=== PATIENT | female | born 1955 | race Caucasian/White ===

== ENCOUNTER 2018-09-23 07:28 | Day surgery (SDC) | payer OTHER ==
--- OUTSIDE RECORDS SUMMARY | 2018-09-16 13:57 | XMSREPORT | Referral Summary ---
:1955 Author Organization [facility] Address [address] [place] [address] [address] [place] [address] Care Team Providers Name Role Phone Farooq Garcia MD Attributed Provider Reason for Referral Transitions of Care (Routine) Status Reason Specialty Diagnoses / Referred By Referred To Procedures Contact Contact New Request Patient Diagnoses Screening for colon cancer Farooq Garcia Chi Preference D, MD [place] [address] [address] Phone: [facility] [place] [phone] [place] [address] Fax: Reason for Visit Reason Comments Medical Question Encounter Details Date Type Department Care Team Description 09/14/2018 Telephone [facility] Farooq Garcia MD Medical Question Family Medicine [address] [place] [address] [place] [id number] Allergies No Known Allergiesdocumented as of this encounter (statuses as of 09/14/2018) Medications Medication Sig Dispensed Refills Start Date End Date Status vitamin C, ascorbic Take 500 mg by 0 Active acid, 500 MG tablet mouth 1 time per day Biotin 5000 MCG CAPS Take 5,000 mcg by 0 Active mouth 1 time per day Multiple Vitamin Take 1 tablet by 0 Active (MULTI VITAMIN PO) mouth 1 time per day vitamin D3, Take 1,000 Units by 0 Active cholecalciferol, 1000 mouth 1 time per units tablet day omega-3 fatty acids Take 1,200 mg by 0 Active (FISH OIL) 1200 mg mouth 1 time per capsule day calcium Take 2 tablets by 0 Active citrate-vitamin D mouth 1 time a day (CALCIUM CITRATE with breakfast MAXIMUM/VIT D) 315 mg-250 unit tablet predniSONE 20 mg 3 po Once Daily x 3 18 tablet 0 11/10/2017 Active tabletIndications: days,2 po Once Contact dermatitis Daily x 3 days, 1 due to poison janet po Once Daily x 3 days. ondansetron (ZOFRAN) 0 11/22/2017 Active 4 mg tablet sumatriptan (IMITREX) Take 1 tablet (100 20 tablet 1 05/07/2018 Active 100 mg mg) by mouth 1 time tabletIndications: for 1 dose May Seasonal allergic repeat in 2 hours rhinitis, unspecified for 1 dose. Limit trigger 200 mg per 24-hour period fluticasone (FLONASE) Elmo 1 spray into 1 Bottle 9 05/07/2018 Active 50 mcg/spray nasal each nostril 1 time sprayIndications: per day Seasonal allergic rhinitis, unspecified trigger tretinoin (RETIN-A) Apply to affected 135 g 3 05/07/2018 Active 0.025 % area creamIndications: Seasonal allergic rhinitis, unspecified trigger venlafaxine (EFFEXOR) Take 1 tablet (37.5 90 tablet 1 05/07/2018 Active 37.5 mg mg) by mouth 1 time tabletIndications: per day Depressive disorder due to separate medical condition cetirizine (ZYRTEC) Take 1 tablet (10 90 tablet 1 05/07/2018 Active 10 mg mg) by mouth 1 time tabletIndications: per day Seasonal allergic rhinitis, unspecified trigger documented as of this encounter (statuses as of 09/14/2018) Active Problems Problem Noted Date Contact dermatitis due to poison janet 11/10/2017 documented as of this encounter (statuses as of 09/14/2018) Immunizations Name Dates Previously Given Next Due Influenza Vaccine,unspecified 02/03/2018 Zoster Recombinant (Shingrix) 08/07/2018, 05/01/2018 documented as of this encounter Social History Tobacco Use Types Packs/Day Years Used Date Never Smoker Smokeless Tobacco: Never Used Sex Assigned at Date Recorded Not on file Job Start Date Occupation Industry Not on file Not on file Not on file Travel History Travel Start Travel End No recent travel history available. documented as of this encounter Plan of Treatment Name Priority Associated Diagnoses Order Schedule CLINIC REFERRAL ENDOSCOPY NON Routine Screening for colon cancer Ordered: ONE CHART documented as of this encounter Visit Diagnoses Diagnosis Screening for colon cancer - Primary Special screening for malignant neoplasms, colon documented in this encounter
[2018-09-23] MEDS ORDERED: Propofol 200 MG/20 ML SDV ONE (07:33)
[2018-09-23] MEDS ORDERED: Midazolam 1 MG/ML 2 ML SDV ONE (07:33)
[2018-09-23] MEDS ORDERED: fentaNYL 100 MCG/2 ML SDV ONE (07:33)
[2018-09-23] MEDS ORDERED: Lactated Ringers 1,000 ML IV SCH (08:00)
[2018-09-23] MEDS ORDERED: Ondansetron 4 MG/2 ML SDV ONE (09:24)
--- NOTE | 2018-09-24 08:45 | OR ---
DATE OF PROCEDURE: 09/23/2018 PREOPERATIVE DIAGNOSIS: Strong family history of colon cancer. Mother of colon cancer. POSTOPERATIVE DIAGNOSIS: Unremarkable colonoscopy. Strong family history of colon cancer. Mother of colon cancer. PROCEDURE: Colonoscopy to the cecum. SURGEON: Gomez Mckeon MD ANESTHESIA: IV anesthesia with monitored anesthesia care. INDICATION: This 63-year-old white female was referred for a colonoscopy because of a strong family history of colon cancer. Her mother of colon cancer at age 67. I counseled her for the procedure, including risks and alternatives, and she gave her informed consent to proceed. DESCRIPTION OF PROCEDURE: The patient was placed in the left lateral decubitus position. IV anesthesia was administered by the Anesthesia Service. Time-out was held. A rectal exam was performed, which was unremarkable. The flexible video Olympus colonoscope was introduced through her anus, up her rectum, and out her colon all the way to the cecum. Once the cecum was reached, the scope was slowly withdrawn examining the mucosa throughout. No mucosal abnormalities were noted. The scope was retroflexed in the rectum with the distal rectum appearing unremarkable. The scope was straightened and removed. She tolerated the procedure well. Gomez Mckeon MD /[id number]
== END 2018-09-23 11:24 | disposition home or self-care (01) ==
LOC: JP.SDS 07:28
PROVIDERS: ATTEND Surgery
DX: Z12.11 Encounter for screening for malignant neoplasm of colon (principal); K21.9 Gastro-esophageal reflux disease without esophagitis; K44.9 Diaphragmatic hernia without obstruction or gangrene; Z86.010 Personal history of colon polyps; Z80.0 Family history of malignant neoplasm of digestive organs
CPT/HCPCS: 45378; J2250; J2405; J2704; J3010; J7120

== ENCOUNTER 2023-09-25 06:23 | Day surgery (SDC) | payer MEDICARE, OTHER ==
[2023-09-25] MEDS: Sodium Chloride 0.9% 1,000 ML IV SCH (07:09)
[2023-09-25] MEDS ORDERED: fentaNYL 100 MCG/2 ML SDV ONE (07:14)
[2023-09-25] MEDS ORDERED: Propofol 200 MG/20 ML SDV ONE (07:14)
== END 2023-09-25 09:46 | disposition home or self-care (01) ==
LOC: JP.SDS 06:23
PROVIDERS: ATTEND Surgery
DX: Z12.11 Encounter for screening for malignant neoplasm of colon (principal); Z80.0 Family history of malignant neoplasm of digestive organs
CPT/HCPCS: G0105; J2704; J3010; J7030